=== PATIENT | male | born 1995 | race Caucasian/White ===

== ENCOUNTER → 2021-07-19 | Outpatient (CLI) | payer SELFPAY | LOC: RAD 08:04 | DX: S62.202A Unspecified fracture of first metacarpal bone, left hand, initial encounter for closed fracture (principal) ==

== ENCOUNTER → 2022-04-20 | Outpatient (CLI) | payer OTHER | LOC: RAD 09:59 | DX: S92.912A Unspecified fracture of left toe(s), initial encounter for closed fracture (principal); S99.912A Unspecified injury of left ankle, initial encounter; X58.XXXA Exposure to other specified factors, initial encounter ==